=== PATIENT | female | born 1980 | race Caucasian/White ===

== ENCOUNTER 2017-12-04 14:26 | Emergency (ER) | payer OTHER ==
[2017-12-04] MEDS ORDERED: ONDANSETRON 4 MG/2 ML VIAL IVP STA (14:37)
[2017-12-04] MEDS ORDERED: MORPHINE SULFATE 4 MG/ML SYRINGE IV STA (14:37)
[2017-12-04] MEDS ORDERED: SODIUM CHLORIDE 0.9% 1,000 ML IV STA ×2 (14:37)
[2017-12-04] MEDS ORDERED: RX INFO: IV CONTRAST WAS GIVEN 1 EACH MISC MISCELLANE PRN (14:37)
--- NOTE | 2017-12-04 14:42 | ED ---
Abdominal Pain HPI - General Chief Complaint: Abdominal Pain Stated Complaint: lower right abdominal & back pain Time Seen by Provider: 12/04/17 14:32 Source: patient, family () Mode of arrival: ambulatory Limitations: no limitations - History of Present Illness Initial Comments: Patient presents with right lower quadrant abdominal pain that's been worsening over the past 3 days. Patient states she developed frequent diarrhea today. Denies any blood in her stools. Patient has a history of cholecystectomy, no other abdominal surgeries. Patient denies urinary symptoms, denies vaginal bleeding or discharge. Patient states pains in the right lower quadrant, now progressing to right flank. +nausea, no vomiting MD Complaint: abdominal pain Onset/Timin -: days(s) Location: RLQ Radiation: R flank Severity: moderate Consistency: constant - Related Data Home Medications Medication Instructions Recorded Confirmed Lisinopril [Zestril] 20 mg PO DAILY 12/04/17 12/04/17 Previous Rx's Medication Instructions Recorded Ibuprofen [Motrin] 600 mg PO Q6HR PRN #15 tab 12/04/17 Allergies Allergy/AdvReac Type Severity Reaction Status Date / Time No Known Allergies Allergy Verified 12/04/17 14:46 Review of Systems ROS Statement: Those systems with pertinent positive or pertinent negative responses have been documented in the HPI. ROS Other: All systems not noted in ROS Statement are negative. Constitutional: Denies: fever, chills, weakness Eyes: Denies: vision change ENT: Denies: ear pain, throat pain, congestion Respiratory: Denies: cough Cardiovascular: Denies: chest pain Endocrine: Denies: fatigue Gastrointestinal: Reports: abdominal pain, nausea, diarrhea. Denies: vomiting, constipation, hematemesis, melena, hematochezia Genitourinary: Denies: urgency, dysuria, frequency, hematuria, discharge, abnormal menses Musculoskeletal: Reports: back pain Skin: Denies: rash Neurological: Denies: headache, weakness Past Medical History Past Medical History: Hypertension History of Any Multi-Drug Resistant Organisms: None Reported Past Surgical History: Cholecystectomy Past Anesthesia/Blood Transfusion Reactions: Previous Problems w/ Anesthesia Additional Past Anesthesia/Blood Transfusion Reaction / Comment(s): Pt states difficulty waking up from general anesthesia Past Psychological History: No Psychological Hx Reported Smoking Status: Never smoker Past Alcohol Use History: Occasional Past Drug Use History: None Reported - Past Family History Mother History Unknown: Yes Family Medical History: Hypertension General Exam - General Exam Comments Initial Comments: Sitting up in bed legs crossed. Well appearing. Smiling, calm, pleasant. Not ill appearing. Does not appear in pain. Limitations: no limitations General appearance: alert, in no apparent distress Head exam: Present: atraumatic, normocephalic Eye exam: Present: normal appearance, PERRL, EOMI ENT exam: Present: mucous membranes moist Neck exam: Present: normal inspection Respiratory exam: Present: normal lung sounds bilaterally. Absent: respiratory distress, wheezes, rales Cardiovascular Exam: Present: regular rate, normal rhythm GI/Abdominal exam: Present: soft, other (No tenderness appreciated. No hernias appreciated.). Absent: distended, tenderness, guarding, rebound, rigid, hernia Neurological exam: Present: alert, oriented X3 Psychiatric exam: Present: normal affect, normal mood Skin exam: Present: warm, dry, intact, normal color. Absent: rash Course Vital Signs 12/04/17 14:28 Temperature 97.5 F L Pulse Rate 103 H Respiratory 20 Rate Blood Pressure 124/75 O2 Sat by Pulse 99 Oximetry Medical Decision Making - Medical Decision Making IV fluids, morphine, Zofran, computed tomography scan of abdomen to rule out appendicitis ordered. White blood cell count 10.7. Per radiology read CAT scan shows normal appendix, right ovarian cyst, possible mild ileus. test negative Patient has been updated without results. Patient pain control. Resting comfortably in bed. Abdomen remains nontender. Discuss liquid diet until symptoms resolve given possible ileus. 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 Return to ER for new or worsening symptoms including fevers, increased pain, blood in stools, not tolerating oral intake. All questions answered. Patient feels comfortable being discharged home at this time. Prescription of Motrin given. - Lab Data Result diagrams: 12/04/17 15:00 12/04/17 15:00 Lab Results 12/04/17 12/04/17 12/04/17 Range/Units 14:48 14:48 15:00 WBC 10.7 H (3.8-10.6) k/uL RBC 5.10 (3.80-5.40) m/uL Hgb 15.2 (11.4-16.0) gm/dL Hct 44.1 (34.0-46.0) % MCV 86.5 (80.0-100.0) fL MCH 29.8 (25.0-35.0) pg MCHC 34.4 (31.0-37.0) g/dL RDW 12.9 (11.5-15.5) % Plt Count 298 (150-450) k/uL Neutrophils % 81 % Lymphocytes % 13 % Monocytes % 4 % Eosinophils % 1 % Basophils % 0 % Neutrophils # 8.6 H (1.3-7.7) k/uL Lymphocytes # 1.4 (1.0-4.8) k/uL Monocytes # 0.4 (0-1.0) k/uL Eosinophils # 0.1 (0-0.7) k/uL Basophils # 0.0 (0-0.2) k/uL Sodium (137-145) mmol/L Potassium (3.5-5.1) mmol/L Chloride (98-107) mmol/L Carbon Dioxide (22-30) mmol/L Anion Gap mmol/L BUN (7-17) mg/dL Creatinine (0.52-1.04) mg/dL Est GFR (MDRD) Af Amer (>60 ml/min/1.73 sqM) Est GFR (MDRD) Non-Af (>60 ml/min/1.73 sqM) Glucose (74-99) mg/dL Calcium (8.4-10.2) mg/dL Total Bilirubin (0.2-1.3) mg/dL AST (14-36) U/L ALT (9-52) U/L Alkaline Phosphatase (38-126) U/L Total Protein (6.3-8.2) g/dL Albumin (3.5-5.0) g/dL Lipase (23-300) U/L Urine Color Yellow Urine Appearance Clear (Clear) Urine pH 5.5 (5.0-8.0) Ur Specific [place] 1.018 (1.001-1.035) Urine Protein Negative (Negative) Urine Glucose (UA) Negative (Negative) Urine Ketones Negative (Negative) Urine Blood Negative (Negative) Urine Nitrite Negative (Negative) Urine Bilirubin Negative (Negative) Urine Urobilinogen <2.0 (<2.0) mg/dL Ur Leukocyte Esterase Negative (Negative) Urine HCG, Qual Not Detected (Not Detectd) 12/04/17 Range/Units 15:00 WBC (3.8-10.6) k/uL RBC (3.80-5.40) m/uL Hgb (11.4-16.0) gm/dL Hct (34.0-46.0) % MCV (80.0-100.0) fL MCH (25.0-35.0) pg MCHC (31.0-37.0) g/dL RDW (11.5-15.5) % Plt Count (150-450) k/uL Neutrophils % % Lymphocytes % % Monocytes % % Eosinophils % % Basophils % % Neutrophils # (1.3-7.7) k/uL Lymphocytes # (1.0-4.8) k/uL Monocytes # (0-1.0) k/uL Eosinophils # (0-0.7) k/uL Basophils # (0-0.2) k/uL Sodium 140 (137-145) mmol/L Potassium 4.1 (3.5-5.1) mmol/L Chloride 106 (98-107) mmol/L Carbon Dioxide 22 (22-30) mmol/L Anion Gap 12 mmol/L BUN 11 (7-17) mg/dL Creatinine 0.68 (0.52-1.04) mg/dL Est GFR (MDRD) Af Amer >60 (>60 ml/min/1.73 sqM) Est GFR (MDRD) Non-Af >60 (>60 ml/min/1.73 sqM) Glucose 106 H (74-99) mg/dL Calcium 9.3 (8.4-10.2) mg/dL Total Bilirubin 1.6 H (0.2-1.3) mg/dL AST 22 (14-36) U/L ALT 24 (9-52) U/L Alkaline Phosphatase 88 (38-126) U/L Total Protein 7.3 (6.3-8.2) g/dL Albumin 4.2 (3.5-5.0) g/dL Lipase 44 (23-300) U/L Urine Color Urine Appearance (Clear) Urine pH (5.0-8.0) Ur Specific [place] (1.001-1.035) Urine Protein (Negative) Urine Glucose (UA) (Negative) Urine Ketones (Negative) Urine Blood (Negative) Urine Nitrite (Negative) Urine Bilirubin (Negative) Urine Urobilinogen (<2.0) mg/dL Ur Leukocyte Esterase (Negative) Urine HCG, Qual (Not Detectd) Disposition Clinical Impression: RLQ abdominal pain, Right ovarian cyst, Ileus Disposition: HOME SELF-CARE Condition: Good Instructions: Abdominal Pain (ED), Ileus (ED), Ovarian Cyst (ED) Additional Instructions: Follow up with her primary care physician in one to 2 days. Return to ER for new or worsening symptoms including fever, increased pain, blood stools. Prescriptions: Ibuprofen [Motrin] 600 mg PO Q6HR PRN #15 tab PRN Reason: Pain Referrals: Syed Cortes III, MD [Primary Care Provider] - 1-2 days
[2017-12-04 15:16] LABS: Basophils % (A) 0 %; Eosinophils # (A) 0.1 k/uL (0-0.7); Eosinophils % (A) 1 %; HCT 44.1 % (34.0-46.0); HGB 15.2 gm/dL (11.4-16.0); Lymphocytes # (A) 1.4 k/uL (1.0-4.8); Lymphocytes % (A) 13 %; MCH 29.8 pg (25.0-35.0); MCHC 34.4 g/dL (31.0-37.0); MCV 86.5 fL (80.0-100.0); Mean Platelet Volume 6.8; Monocytes # (A) 0.4 k/uL (0-1.0); Monocytes % (A) 4 %; Neutrophils # (A) 8.6 k/uL (1.3-7.7); Neutrophils % (A) 81 %; Platelet Count 298 k/uL (150-450); RDW 12.9 % (11.5-15.5); WBC 10.7 k/uL (3.8-10.6)
[2017-12-04 15:17] LABS: Appearance,Urine Clear (Clear); Bilirubin,Urine Negative (Negative); Blood,Urine Negative (Negative); Color,Urine Yellow; Glucose,Urine (UA) Negative (Negative); Ketones,Urine Negative (Negative); Leukocyte Esterase,Urine Negative (Negative); Nitrite,Urine Negative (Negative); PH, Urine 5.5 (5.0-8.0); Protein,Urine Negative (Negative); Specific Gravity,Urine 1.018 (1.001-1.035); Urobilinogen,Urine <2.0 mg/dL (<2.0)
[2017-12-04 15:28] LABS: ALT 24 U/L (9-52); AST 22 U/L (14-36); Albumin 4.2 g/dL (3.5-5.0); Alkaline Phosphatase 88 U/L (38-126); Anion Gap 12 mmol/L; Blood Urea Nitrogen 11 mg/dL (7-17); Calcium 9.3 mg/dL (8.4-10.2); Carbon Dioxide 22 mmol/L (22-30); Chloride 106 mmol/L (98-107); Glucose 106 mg/dL (74-99); Lipase 44 U/L (23-300); Potassium 4.1 mmol/L (3.5-5.1); Sodium 140 mmol/L (137-145); Total Bilirubin 1.6 mg/dL (0.2-1.3); Total Protein 7.3 g/dL (6.3-8.2)
--- NOTE | 2017-12-04 16:16 | CT ---
EXAMINATION TYPE: CT abdomen pelvis w con DATE OF EXAM: 12/04/2017 COMPARISON: The fourth 2014 INDICATION: Patient complains of RLQ pain. DLP: 823.9 mGycm, Automated exposure control for dose reduction was used. CONTRAST: 100 mL of Omnipaque 300. Study performed without Oral Contrast TECHNIQUE: Axial images were obtained from above the diaphragm to the pubic rami in the axial plane a t 5 mm thick sections. Reconstructed images are reviewed on the computer in the coronal plane. FINDINGS: Limited CT sections are obtained the lung bases. The lung bases are clear. CT ABDOMEN: Liver: Normal Spleen: Normal Pancreas: Normal Adrenal glands: The adrenal glands are normal. Gallbladder: Surgically absent. Kidneys: No masses are evident. No hydronephrosis is present. No cysts are present. Delayed images were obtained through the kidneys, which remain unremarkable. Aorta: Normal Inferior vena cava: Normal. CT PELVIS: There are fluid-filled small bowel loops. These are at the upper limits of normal for size. The colon appears unremarkable. Studies performed without oral contrast limiting the evaluation. Appendix: Normal as visualized. Urinary bladder: Decompressed with limited evaluation. Genitourinary structures: Uterus is unremarkable. Left adnexa is normal. The right adnexal region may contain a 1.8 cm cyst. No free fluid is within the pelvis. Osseous structures: No suspicious lytic or sclerotic lesions. IMPRESSIONS: 1. 1.8 cm right ovarian cyst. Follow-up ultrasound be performed following the next normal menstrual period. 2. Normal appendix. 3. There are fluid-filled small bowel loops. These are at the upper limits of normal for size. Correl ate for mild ileus.
[2017-12-04 17:20] VITALS: BP 107/57; PULSE 80; RESP 18; TEMP 98.2
== END 2017-12-04 17:16 | disposition home or self-care (01) ==
LOC: EC 14:26
DX: N83.201 Unspecified ovarian cyst, right side (principal); K56.7 Ileus, unspecified; D72.829 Elevated white blood cell count, unspecified; I10 Essential (primary) hypertension; Z79.899 Other long term (current) drug therapy; Z53.8 Procedure and treatment not carried out for other reasons; Z90.49 Acquired absence of other specified parts of digestive tract
CPT/HCPCS: 36415; 80053; 83690; 85025; 81003; 81025; 74177; 99284; 96374; 96375; 96361 ×2; J2270; J2405; Q9967

== ENCOUNTER 2017-12-16 06:46 | Day surgery (SDC) | payer OTHER ==
[2017-12-15 09:26] VITALS: BMI 31.3
[~2017-12-16 06:46] MED LIST: DEXAMETHASONE SOD PHOSPHATE 10 MG/ML 1 ML VIAL IV ONE; LACTATED RINGERS 1,000 ML IV SCH; MIDAZOLAM 2 MG/2 ML VIAL IV PRN; MORPHINE SULFATE 4 MG/ML SYRINGE IV PRN; ONDANSETRON 4 MG/2 ML VIAL IVP ONE; Pre Op ABX Message 1 EACH MISC MISCELLANE ONE; SCOPOLAMINE 1.5MG/72HR PATCH TRANSDERM ONE
[2017-12-16] MEDS ORDERED: LIDOCAINE 1% 20 ML VIAL (10MG/ML) FOR IV START INTRADERMA ONE (07:10)
[2017-12-16] MEDS ORDERED: BUPIVACAINE (PF) 0.25% 30 ML VIAL SQ ONE (07:46)
[2017-12-16] MEDS ORDERED: fentaNYL (PF) 50 MCG/ML 2 ML AMP ONE (07:54)
[2017-12-16] MEDS ORDERED: GLYCOPYRROLATE 0.2 MG/ML 2 ML VIAL ONE (07:54)
[2017-12-16] MEDS ORDERED: PROPOFOL 10 MG/ML 20 ML VIAL IV ONE (07:54)
[2017-12-16] MEDS ORDERED: LIDOCAINE 1% INJ 10MG/ML (20 ML MDV) ONE (07:54)
[2017-12-16] MEDS ORDERED: ROCURONIUM BROMIDE 10 MG/ML 10 ML VIAL IV ONE (07:54)
[2017-12-16] MEDS ORDERED: MIDAZOLAM 2 MG/2 ML VIAL ONE (07:54)
[2017-12-16] MEDS ORDERED: SUCCINYLCHOLINE CHLORIDE 100 MG/5 ML SYR IV ONE (07:54)
[2017-12-16] MEDS ORDERED: KETOROLAC 30 MG/ML 1 ML VIAL ONE (07:54)
[2017-12-16] MEDS ORDERED: NEOSTIGMINE 1 MG/ML 10 ML VIAL ONE (07:54)
--- NOTE | 2017-12-16 07:59 | P.HPOB ---
History of Present Illness H&P Date: 12/16/17 Chief Complaint: Family planning Allen is a 37-year-old female who is completed her family planning and desires permanent sterilization. She is taking lisinopril for hypertension therefore is not a good candidate for oral contraceptives. Alternative methods for control were discussed with the patient in detail but she is certain that permanent sterilization is what she would like. She is therefore scheduled for a laparoscopic tubal occlusion with Filshie clips. Risks/benefits/alternatives to this procedure again were discussed with the patient in detail and all questions were answered for her prior to proceeding to the operative room. She is also noted to have had some pain in her ovaries and would like this evaluated the same time. On physical exam vital signs are stable and afebrile. Heart regular, lungs clear, extremities are without pain. Osteopathic exam is unremarkable. Abdomen soft nontender positive bowel sounds are noted. Pelvic exam is generally unremarkable. Assessment family planning. Plan laps up tubal occlusion with Filshie clips Past Medical History Past Medical History: Hypertension History of Any Multi-Drug Resistant Organisms: None Reported Past Surgical History: Cholecystectomy Past Anesthesia/Blood Transfusion Reactions: Previous Problems w/ Anesthesia Additional Past Anesthesia/Blood Transfusion Reaction / Comment(s): Pt states difficulty waking up from general anesthesia Smoking Status: Never smoker - Past Family History Mother History Unknown: Yes Family Medical History: Hypertension Medications and Allergies Home Medications Medication Instructions Recorded Confirmed Type Ibuprofen [Motrin] 600 mg PO Q6HR PRN #15 tab 12/04/17 12/15/17 Rx Lisinopril [Zestril] 20 mg PO DAILY 12/04/17 12/16/17 History Allergies Allergy/AdvReac Type Severity Reaction Status Date / Time No Known Allergies Allergy Verified 12/15/17 09:23 Exam Osteopathic Statement: *. No significant issues noted on an osteopathic structural exam other than those noted in the History and Physical/Consult. - Vital Signs Vital signs: Vital Signs Temp Pulse Pulse Ox 12/16/17 07:09 97.1 F L 70 99 Intake and Output 12/15/17 12/16/17 12/16/17 22:59 06:59 14:59 Intake Total 200 Balance 200 Intake: IV 200
--- NOTE | 2017-12-16 08:26 | P.OP ---
Date of Procedure: 12/16/17 Preoperative Diagnosis: Family planning Postoperative Diagnosis: Same Procedure(s) Performed: Laparoscopic tubal occlusion with Filshie clips Anesthesia: DMITRY Surgeon: Jorge L Herrmann Estimated Blood Loss (ml): 2 Urine output (ml): 30 Pathology: none sent Condition: stable Disposition: same day Operative Findings: Normal uterus tubes and ovaries no large cysts are noted Description of Procedure: Patient was taken to the operating suite where a general anesthetic was found be adequate. She was prepped and draped in the normal sterile fashion and placed in dorsal lithotomy position. Initially a weighted speculum was inserted into the vagina and the anterior lip was of the cervix was grasped with an Allis clamp. Cervix was then dilated and a uterine manipulator was inserted without difficulty. Red rubber catheter was then used to drain the bladder of urine and other instruments were removed from from the vagina. Gloves were changed and attention was turned to abdominal portion procedure where 3 mL of quarter percent Marcaine was injected periumbilically. Through this injected anesthetic a 5 mm skin incision was made and through this incision under direct visualization with an optical trocar and sleeve the camera was inserted. Once peritoneal placement was assured gas was left fully insufflate the abdomen and patient's placement steep Trendelenburg position. A second 8 mm skin incision was then made 3 cm above the pubic symphysis in the midline. Second port and sleeve were inserted to this incision under direct visualization. Observations pelvis were noted. Some scarring is noted in the posterior cul-de-sac but no evidence of endometriosis. 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 He functional cyst on the right ovary only. Once this was accomplished Filshie clips were placed 2-3 cm from uterine cornu on both the right and left tubes area no bleeding is noted through the mesosalpinx. Therefore, instruments are removed and gas was allowed to expel from the abdomen. 5 deep breaths were provided during this process. Once this was accomplished and ports were removed 4-0 Vicryl was used to close incision subcuticularly and the remaining 7 mL of quarter percent Marcaine was injected around the incisions. Incidents were then removed from the vagina sponge, lap, needle counts were all correct 2. Patient was then taken to the recovery room in stable and satisfactory condition. Plan - Discharge Summary New Discharge Prescriptions: New Acetaminophen-Codeine 300-30mg [Tylenol #3] 1 tab PO Q4H PRN #30 tablet PRN Reason: Pain Ibuprofen [Motrin] 600 mg PO Q6HR PRN #30 tab PRN Reason: Pain No Action Lisinopril [Zestril] 20 mg PO DAILY Ibuprofen [Motrin] 600 mg PO Q6HR PRN #15 tab PRN Reason: Pain Discharge Medication List Ibuprofen [Motrin] 600 mg PO Q6HR PRN #15 tab 12/04/17 [Rx] Lisinopril [Zestril] 20 mg PO DAILY 12/04/17 [History] Acetaminophen-Codeine 300-30mg [Tylenol #3] 1 tab PO Q4H PRN #30 tablet [Rx] Ibuprofen [Motrin] 600 mg PO Q6HR PRN #30 tab 12/16/17 [Rx] Follow up Appointment(s)/Referral(s): Jorge L Herrmann DO [Doctor of Osteopathic Medicine] - 2 Weeks Activity/Diet/Wound Care/Special Instructions: No heavy lifting, limit stairs and driving, and pelvic rest. If any high temperatures, heavy bleeding, or severe pain call my office Discharge Disposition: HOME SELF-CARE
[2017-12-16 08:38] VITALS: RESP 16; TEMP 97
[2017-12-16] MEDS ORDERED: HYDROmorphone 0.5 MG/0.5 ML SYRINGE IVP ONE ×4 (08:58→09:52)
[2017-12-16] MEDS ORDERED: LACTATED RINGERS 1,000 ML IV ONE ×2 (09:05→11:58)
[2017-12-16 11:58] VITALS: BP 126/61; PULSE 61
== END 2017-12-16 12:46 | disposition home or self-care (01) ==
LOC: OR 06:46
PROVIDERS: ATTEND Obstetrics & Gynecology
DX: Z30.2 Encounter for sterilization (principal); N94.89 Other specified conditions associated with female genital organs and menstrual cycle; N83.201 Unspecified ovarian cyst, right side; I10 Essential (primary) hypertension; Z79.899 Other long term (current) drug therapy
CPT/HCPCS: 58671; 81025; J2250; J1100; J2710; J2405; J2001; J3010; J1885; J0330; J2704; J1170

== ENCOUNTER → 2018-04-21 | Outpatient (CLI) | payer OTHER | END | disposition home or self-care (01) | LOC: LABWHC1 11:18 | PROVIDERS: ATTEND Obstetrics & Gynecology | DX: N93.8 Other specified abnormal uterine and vaginal bleeding (principal) | CPT/HCPCS: 36415; 83001; 83002; 84146; 84443 ==

== ENCOUNTER → 2019-05-07 | Outpatient (CLI) | payer OTHER ==
[2019-05-07 10:54] LABS: Basophils % (A) 0 %; Eosinophils # (A) 0.2 k/uL (0-0.7); Eosinophils % (A) 2 %; HCT 41.6 % (34.0-46.0); HGB 13.8 gm/dL (11.4-16.0); Lymphocytes # (A) 2.1 k/uL (1.0-4.8); Lymphocytes % (A) 32 %; MCH 29.1 pg (25.0-35.0); MCHC 33.1 g/dL (31.0-37.0); MCV 87.7 fL (80.0-100.0); Mean Platelet Volume 7.1; Monocytes # (A) 0.3 k/uL (0-1.0); Monocytes % (A) 5 %; Neutrophils # (A) 3.9 k/uL (1.3-7.7); Neutrophils % (A) 58 %; Platelet Count 269 k/uL (150-450); RBC 4.75 m/uL (3.80-5.40); RDW 15.1 % (11.5-15.5); WBC 6.6 k/uL (3.8-10.6)
== END | disposition home or self-care (01) ==
LOC: LABPAT 10:14
PROVIDERS: ATTEND Obstetrics & Gynecology
DX: Z01.812 Encounter for preprocedural laboratory examination (principal)
CPT/HCPCS: 36415; 85025

== ENCOUNTER 2019-05-17 08:06 | Day surgery (SDC) | payer OTHER ==
[2019-05-15 12:16] VITALS: BMI 30.8
--- NOTE | 2019-05-16 16:42 | P.HPOB ---
History of Present Illness H&P Date: 05/16/19 Chief Complaint: Pelvic pain fluid in the endometrium Patient is a 38-year-old female with a history of pelvic pain. She is noted to have fluid on her ultrasound within the endometrium and as such we are planning to do a D&C with hysteroscopy to rule out pathology. Risks/b enefits/alternatives to this procedure were discussed with the patient in detail and all questions were answered for her prior to proceeding to the operative room. We did discuss potentially doing a NovaSure procedure, but due to the increased risk of the causing her pain we'll defer until were certain of pathology. On physical exam vital signs are stable and afebrile. Heart regular, lungs clear, extremities without pain. Abdomen soft nontender with positive bowel sounds. Pelvic exam is unremarkable. Assessment pelvic pain with fluid in the endometrium. Plan D&C with hysteroscopy. Past Medical History Past Medical History: Hypertension, Musculoskeletal Disorder Additional Past Medical History / Comment(s): Scoliosis. History of Any Multi-Drug Resistant Organisms: None Reported Past Surgical History: Cholecystectomy, Tubal Ligation Past Anesthesia/Blood Transfusion Reactions: Previous Problems w/ Anesthesia Additional Past Anesthesia/Blood Transfusion Reaction / Comment(s): Pt states difficulty waking up from general anesthesia. Past Psychological History: Anxiety, Depression Smoking Status: Never smoker Past Alcohol Use History: Occasional Past Drug Use History: None Reported - Past Family History Mother History Unknown: Yes Family Medical History: Hypertension Medications and Allergies Home Medications Medication Instructions Recorded Confirmed Type FLUoxetine HCL 10 mg PO QAM 05/15/19 05/15/19 History Hydrochlorothiazide 25 mg PO QAM 05/15/19 05/15/19 History Allergies Allergy/AdvReac Type Severity Reaction Status Date / Time No Known Allergies Allergy Verified 05/15/19 12:39 Exam Osteopathic Statement: *. No significant issues noted on an osteopathic structural exam other than those noted in the History and Physical/Consult.
[~2019-05-17 08:06] MED LIST changes: +HYDROmorphone 0.5 MG/0.5 ML SYRINGE IVP PRN; -MIDAZOLAM 2 MG/2 ML VIAL IV PRN; -MORPHINE SULFATE 4 MG/ML SYRINGE IV PRN; -SCOPOLAMINE 1.5MG/72HR PATCH TRANSDERM ONE
[2019-05-17] MEDS ORDERED: LIDOCAINE 1% 20 ML VIAL (10MG/ML) FOR IV START INTRADERMA ONE (08:34)
[2019-05-17] MEDS ORDERED: MIDAZOLAM 2 MG/2 ML VIAL ONE (09:27)
[2019-05-17] MEDS ORDERED: LIDOCAINE 1% INJ 10MG/ML (20 ML MDV) ONE (09:27)
[2019-05-17] MEDS ORDERED: fentaNYL (PF) 50 MCG/ML 2 ML AMP ONE (09:27)
[2019-05-17] MEDS ORDERED: PROPAFENONE 150 MG TAB ONE (09:27)
[2019-05-17] MEDS ORDERED: PROPOFOL 10 MG/ML 20 ML VIAL IV ONE (09:27)
[2019-05-17 10:07] VITALS: TEMP 96.1
--- NOTE | 2019-05-17 10:08 | P.OP ---
Date of Procedure: 05/17/19 Preoperative Diagnosis: Dysfunctional uterine bleeding Postoperative Diagnosis: Same Procedure(s) Performed: D&C with hysteroscopy Anesthesia: DMITRY Surgeon: Jorge L Herrmann Estimated Blood Loss (ml): 3 Pathology: other (Uterine curettings) Condition: stable Disposition: same day Operative Findings: Likely polyp Description of Procedure: Patient was taken to the operating suite where a general anesthetic was found be adequate. She was prepped and draped in normal sterile fashion and placed in dorsal lithotomy fashion. Initially weighted speculum was inserted into the vagina and the anterior lip of the cervix was identified and grasped with an Allis clamp. Cervix was then dilated camera was inserted. Grossly it appeared that there was a large polyp in the uterine cavity no other gross findings were noted therefore camera was removed and sharp curettings of endometrium were obtained. All tissues collected placed on Telfa and sent to pathology for evaluation. Once this was completed camera was reinserted and polyp appears to be gone now. All incidents were then removed. Sponge, lap, needle counts were all correct 2. Patient was then taken to the recovery room in stable and satisfactory condition. Plan - Discharge Summary Discharge Rx Participant: No New Discharge Prescriptions: New Ibuprofen [Motrin] 600 mg PO Q6HR PRN #30 tab PRN Reason: Pain No Action Hydrochlorothiazide 25 mg PO QAM FLUoxetine HCL 10 mg PO QAM Discharge Medication List FLUoxetine HCL 10 mg PO QAM 05/15/19 [History] Hydrochlorothiazide 25 mg PO QAM 05/15/19 [History] Ibuprofen [Motrin] 600 mg PO Q6HR PRN #30 tab 05/17/19 [Rx] Follow up Appointment(s)/Referral(s): Jorge L Herrmann DO [Doctor of Osteopathic Medicine] - 1 Week Activity/Diet/Wound Care/Special Instructions: No heavy lifting, and surgeon driving, and pelvic rest today. If any high temperatures, heavy bleeding, or severe pain call my office Discharge Disposition: HOME SELF-CARE
[2019-05-17 10:18] VITALS: RESP 18
[2019-05-17 11:01] VITALS: PULSE 79
[2019-05-17 11:30] VITALS: BP 126/79
== END 2019-05-17 11:56 | disposition home or self-care (01) ==
LOC: OR 08:06
PROVIDERS: ATTEND Obstetrics & Gynecology
DX: N93.8 Other specified abnormal uterine and vaginal bleeding (principal); N84.0 Polyp of corpus uteri; I10 Essential (primary) hypertension; M41.9 Scoliosis, unspecified; F41.9 Anxiety disorder, unspecified; F32.9 Major depressive disorder, single episode, unspecified; Z79.899 Other long term (current) drug therapy; Z90.49 Acquired absence of other specified parts of digestive tract; Z98.51 Tubal ligation status; Z82.49 Family history of ischemic heart disease and other diseases of the circulatory system
CPT/HCPCS: 58558; 81025; 88305; J2250; J1100; J2405; J2001; J3010; J2704

== ENCOUNTER 2019-06-20 18:52 | Emergency (ER) | payer OTHER ==
[2019-06-20] MEDS ORDERED: KETOROLAC 30 MG/ML 1 ML VIAL IVP STA (19:14)
[2019-06-20] MEDS ORDERED: HYDROmorphone 0.5 MG/0.5 ML SYRINGE IVP STA (19:14)
[2019-06-20] MEDS ORDERED: DIPH,PERTUS(ACELL)TETVAC-LF 0.5 ML VIAL IM ONE (19:23)
--- NOTE | 2019-06-20 19:25 | ED ---
Upper Extremity HPI - General Chief Complaint: Extremity Injury, Upper Stated Complaint: Nail in Hand Time Seen by Provider: 06/20/19 18:55 Source: patient, EMS Mode of arrival: EMS Limitations: no limitations - History of Present Illness Initial Comments: 38-year-old female patient presents to the emergency department today for evaluation after accidentally shooting herself with a nail gun. Patient states she was doing some work at her home when she missed fired and shot her wrist with the nail gun. Patient is reporting significant pain. Denies any numbness or tingling to the fingers. The nail is completely embedded and she was unable to remove it. She is unsure when her last tetanus vaccine was given. She was given 50mcg of Fentanyl in EMS prior to arrival. She denies any other symptoms. Patient denies any headache, neck pain, back pain, chest pain, shortness of breath, dizziness, weakness, abdominal pain, nausea, vomiting, or difficulties with bowel movements or urination. - Related Data Home Medications Medication Instructions Recorded Confirmed FLUoxetine HCL 10 mg PO QAM 05/15/19 05/17/19 Hydrochlorothiazide 25 mg PO QAM 05/15/19 05/17/19 Previous Rx's Medication Instructions Recorded Ibuprofen [Motrin] 600 mg PO Q6HR PRN #30 tab 05/17/19 Cephalexin [Keflex] 500 mg PO Q6HR #40 cap 06/20/19 Allergies Allergy/AdvReac Type Severity Reaction Status Date / Time No Known Allergies Allergy Verified 05/15/19 12:39 Review of Systems ROS Statement: Those systems with pertinent positive or pertinent negative responses have been documented in the HPI. ROS Other: All systems not noted in ROS Statement are negative. Past Medical History Past Medical History: Hypertension, Musculoskeletal Disorder Additional Past Medical History / Comment(s): Scoliosis. History of Any Multi-Drug Resistant Organisms: None Reported Past Surgical History: Cholecystectomy, Tubal Ligation Past Anesthesia/Blood Transfusion Reactions: Previous Problems w/ Anesthesia Additional Past Anesthesia/Blood Transfusion Reaction / Comment(s): Pt states difficulty waking up from general anesthesia. Past Psychological History: Anxiety, Depression Smoking Status: Never smoker Past Alcohol Use History: Occasional Past Drug Use History: None Reported - Past Family History Mother History Unknown: Yes Family Medical History: Hypertension General Exam Limitations: no limitations General appearance: alert, in no apparent distress, other (This is a well- developed, well-nourished adult female patient in mild distress related to pain. Vital signs upon presentation are temperature 98.1F, pulse 66, respirations 17, blood pressure 112/70, pulse ox 98% on room air.) Eye exam: Present: normal appearance, PERRL, EOMI. Absent: scleral icterus, conjunctival injection, periorbital swelling ENT exam: Present: normal exam, normal oropharynx, mucous membranes moist Respiratory exam: Present: normal lung sounds bilaterally. Absent: respiratory distress, wheezes, rales, rhonchi, stridor Cardiovascular Exam: Present: regular rate, normal rhythm, normal heart sounds. Absent: systolic murmur, diastolic murmur, rubs, gallop, clicks Extremities exam: Present: full ROM, normal capillary refill, other (There is puncture entrance wound noted to the palmar aspect of the left hand, puncture and skin tenting noted to the dorsal surface of the left wrist. No protruding foreign body noted. Skin to the arm is pink, warm, dry. Cap refills less than 3 seconds. Radial pulses 2+ and equal bilaterally.). Absent: normal inspection, tenderness, pedal edema, joint swelling, calf tenderness Neurological exam: Present: alert, oriented X3, CN II-XII intact Psychiatric exam: Present: normal affect, normal mood Skin exam: Present: warm, dry, intact, normal color. Absent: rash Course Vital Signs 06/20/19 06/20/19 19:05 22:03 Temperature 98.1 F 98 F Pulse Rate 66 70 Respiratory 17 18 Rate Blood Pressure 112/70 121/82 O2 Sat by Pulse 98 97 Oximetry Procedures - Orthopedic Splinting/Casting Injury #1 Side: left Upper Extremity Injury Location: wrist Upper Extremity Immobilizer: volar splint, Elijah wrap Additional Comments: Well padded with webroll. Neurovascular status intact after splint application. Given is pink, warm, dry. Cap refills less than 3 seconds. Radial pulses 2+ and equal bilaterally. Medical Decision Making - Medical Decision Making 38-year-old female patient percents into to the emergency department today for evaluation after accidentally shooting her wrist with a nail gun. Physical examination does reveal entrance puncture wound to the palm of the left hand with tenting of the skin and puncture and skin tenting to the dorsal wrist. There is no bleeding. X-ray did reveal nail foreign body possibly transversing the capitate. My attending Dr. Suazo was in to evaluate the patient. He spoke to orthopedic [employer] orthodontist Dr. Evans who advised splinting and follow up with the hand specialist in the office tomorrow morning. Patient was given 1g IV kefzol. She'll be discharged home with starter packs for pain management and antibiotics. Patient was placed in OCL splint. This was well padded with web roll. Neurovascular status intact after splint application. She is instructed to follow-up with orthopedics tomorrow. Return parameters were discussed in detail. She verbalizes understanding and agrees with this plan. - Radiology Data Radiology results: report reviewed, image reviewed Left wrist x-rays are obtained. Report was reviewed in its entirety. Impression by Dr. Avila shows a nail appears to transverse the capitellum. (My review of the xray shows possibly transversing the capitate). Disposition Clinical Impression: Foreign body of left hand Disposition: HOME SELF-CARE Condition: Stable Instructions (If sedation given, give patient instructions): Soft Tissue Foreign Body (ED), Wrist Fracture in Adults (ED), Splint Care (ED) Additional Instructions: Rest, ice, elevate the left wrist. Follow-up with the orthopedic hand specialist first thing in the morning. Call the office for an appointment. Take medications when she when he emergency department. Return immediately for any new, worsening, or concerning symptoms. Prescriptions: Cephalexin [Keflex] 500 mg PO Q6HR #40 cap Is patient prescribed a controlled substance at d/c from ED?: No Referrals: Cleveland Andino DO [Medical Doctor] - 1-2 days Time of Disposition: 21:48
[2019-06-20] MEDS ORDERED: HYDROmorphone 1 MG/ML 1 ML SYRINGE IVP STA (20:24)
--- NOTE | 2019-06-20 20:33 | XR ---
EXAMINATION TYPE: XR wrist complete LT DATE OF EXAM: 06/20/2019 COMPARISON: None HISTORY: Nail gun injury TECHNIQUE: Left wrist is examined in 4 projections. FINDINGS: There is a metallic foreign body transversing the capitellum. Soft tissue swelling is prese nt dorsally. IMPRESSION: 1. The nail appears to transverse the capitellum.
[2019-06-20] MEDS ORDERED: ACET/COD 300 MG/30 MG STARTER PACK 6 TAB BTL PO STA (21:48)
[2019-06-20] MEDS ORDERED: CEPHALEXIN 500MG STARTER PACK 4 CAP BTL PO STA (21:49)
[2019-06-20 22:04] VITALS: BP 121/82; PULSE 70; RESP 18; TEMP 98
== END 2019-06-20 22:11 | disposition home or self-care (01) ==
LOC: EC 18:52
DX: S61.442A Puncture wound with foreign body of left hand, initial encounter (principal); I10 Essential (primary) hypertension; F32.9 Major depressive disorder, single episode, unspecified; F41.9 Anxiety disorder, unspecified; Z79.899 Other long term (current) drug therapy; Z23 Encounter for immunization; W45.0XXA Nail entering through skin, initial encounter; Y93.89 Activity, other specified
CPT/HCPCS: 73110; 90715; 99284; 29125; 96365; 96375 ×2; 96376; 90471; J0690; J1885; J1170 ×2

== ENCOUNTER 2022-03-29 10:03 | Emergency (ER) | payer OTHER ==
[2022-03-29] MEDS ORDERED: MORPHINE SULFATE 2 MG/ML SYRINGE IVP STA (10:22)
--- NOTE | 2022-03-29 10:24 | ED ---
Abdominal Pain HPI - General Chief Complaint: Abdominal Pain Stated Complaint: abd pain Time Seen by Provider: 03/29/22 10:13 Source: patient, RN notes reviewed Mode of arrival: ambulatory Limitations: no limitations - History of Present Illness Initial Comments: Patient is a 41-year-old female presents to the emergency room with complaints of upper abdominal pain occasional nausea and diarrhea ongoing for the last 3 days. She reports that she has decreased her oral intake due to diarrhea with any intake. She denies any vomiting. She denies any blood or mucus in her stool. She denies any fevers, exposure to cold or influenza, intake of fo ods that may induce food poisoning. She has a previous cholecystectomy. She is past medical history significant for hypertension. She currently has a Nexplanon implanted and does report that she had an extra menstrual cycle last month and a history of ovarian cysts but denies any concerns for STDs or pregnancies. She is not currently on her menstrual cycle. She denies any other complaints or andrew rns this time. - Related Data Home Medications Medication Instructions Recorded Confirmed Loratadine [Alavert] 10 mg PO DAILY 03/29/22 03/29/22 Losartan [Cozaar] 50 mg PO DAILY 03/29/22 03/29/22 Allergies Allergy/AdvReac Type Severity Reaction Status Date / Time No Known Allergies Allergy Verified 03/29/22 11:34 Review of Systems ROS Statement: Those systems with pertinent positive or pertinent negative responses have been documented in the HPI. ROS Other: All systems not noted in ROS Statement are negative. Past Medical History Past Medical History: Hypertension, Musculoskeletal Disorder Additional Past Medical History / Comment(s): Scoliosis. History of Any Multi-Drug Resistant Organisms: None Reported Past Surgical History: Cholecystectomy, Tubal Ligation Past Anesthesia/Blood Transfusion Reactions: Previous Problems w/ Anesthesia Additional Past Anesthesia/Blood Transfusion Reaction / Comment(s): Pt states difficulty waking up from general anesthesia. Past Psychological History: Anxiety, Depression Smoking Status: Never smoker Past Alcohol Use History: Occasional Past Drug Use History: None Reported - Past Family History Mother History Unknown: Yes Family Medical History: Hypertension General Exam Limitations: no limitations General appearance: alert, in no apparent distress Head exam: Present: atraumatic, normocephalic, normal inspection Eye exam: Present: normal appearance, PERRL, EOMI. Absent: scleral icterus, conjunctival injection, periorbital swelling ENT exam: Present: normal exam, mucous membranes moist Respiratory exam: Present: normal lung sounds bilaterally. Absent: respiratory distress, wheezes, rales, rhonchi, stridor Cardiovascular Exam: Present: regular rate, normal rhythm, normal heart sounds. Absent: systolic murmur, diastolic murmur, rubs, gallop, clicks GI/Abdominal exam: Present: tenderness (Bilateral upper quadrants ), normal bowel sounds. Absent: distended, rebound, rigid, organomegaly, mass Rectal exam: Present: deferred Extremities exam: Present: normal inspection, normal capillary refill. Absent: tenderness, pedal edema, joint swelling, calf tenderness Back exam: Absent: CVA tenderness (R), CVA tenderness (L) Neurological exam: Present: alert, oriented X3, CN II-XII intact Psychiatric exam: Present: normal affect, normal mood Skin exam: Present: warm, dry, intact, normal color. Absent: rash Course Vital Signs 03/29/22 03/29/22 10:04 11:57 Pulse Rate 90 67 Respiratory 22 16 Rate Blood Pressure 144/97 119/77 O2 Sat by Pulse 100 98 Oximetry Medical Decision Making - Medical Decision Making Pain improved with one-time dose of morphine. Computed tomography scan showed predominant fluid-filled small bowel loops throughout consistent with enteritis. Scattered nonenlarged and borderline mildly enlarged mesenteric lymph nodes measuring up to 1.0 cm which are stable to decreased compared to previous imaging. Computed tomography scan also shows some some asymmetrical fullness of right renal collecting system which is likely transient possibility of recently passed stone which is consistent with most recent urine analysis which showed hematuria and proteinuria mucus and casts without bacteria leukocyte esterase or nitrates.. Pain stable without any nausea vomiting or diarrhea during ER visit. - Lab Data Result diagrams: 03/29/22 10:24 03/29/22 10:24 Lab Results 03/29/22 03/29/22 03/29/22 Range/Units 10: 10: 10:24 WBC 11.5 H (3.8-10.6) k/uL RBC 4.59 (3.80-5.40) m/uL Hgb 14.0 (11.4-16.0) gm/dL Hct 41.9 (34.0-46.0) % MCV 91.1 (80.0-100.0) fL MCH 30.4 (25.0-35.0) pg MCHC 33.3 (31.0-37.0) g/dL RDW 13.0 (11.5-15.5) % Plt Count 279 (150-450) k/uL MPV 6.9 Neutrophils % 78 % Lymphocytes % 14 % Monocytes % 5 % Eosinophils % 1 % Basophils % 0 % Neutrophils # 9.0 H (1.3-7.7) k/uL Lymphocytes # 1.6 (1.0-4.8) k/uL Monocytes # 0.5 (0-1.0) k/uL Eosinophils # 0.1 (0-0.7) k/uL Basophils # 0.1 (0-0.2) k/uL Sodium (137-145) mmol/L Potassium (3.5-5.1) mmol/L Chloride (98-107) mmol/L Carbon Dioxide (22-30) mmol/L Anion Gap mmol/L BUN (7-17) mg/dL Creatinine (0.52-1.04) mg/dL Est GFR (CKD-EPI)AfAm (>60 ml/min/1.73 sqM) Est GFR (CKD-EPI)NonAf (>60 ml/min/1.73 sqM) Glucose (74-99) mg/dL Calcium (8.4-10.2) mg/dL Total Bilirubin (0.2-1.3) mg/dL AST (14-36) U/L ALT (4-34) U/L Alkaline Phosphatase (38-126) U/L Total Protein (6.3-8.2) g/dL Albumin (3.5-5.0) g/dL Amylase (30-110) U/L Lipase (23-300) U/L Urine Color Yellow Urine Appearance Clear (Clear) Urine pH 5.5 (5.0-8.0) Ur Specific [place] 1.023 (1.001-1.035) Urine Protein Trace H (Negative) Urine Glucose (UA) Negative (Negative) Urine Ketones Negative (Negative) Urine Blood Large H (Negative) Urine Nitrite Negative (Negative) Urine Bilirubin Negative (Negative) Urine Urobilinogen <2.0 (<2.0) mg/dL Ur Leukocyte Esterase Negative (Negative) Urine RBC 21 H (0-5) /hpf Urine WBC 1 (0-5) /hpf Hyaline Casts 1 (0-2) /lpf Urine Mucus Occasional H (None) /hpf Urine HCG, Qual Not Detected (Not Detectd) 03/29/22 Range/Units 10:24 WBC (3.8-10.6) k/uL RBC (3.80-5.40) m/uL Hgb (11.4-16.0) gm/dL Hct (34.0-46.0) % MCV (80.0-100.0) fL MCH (25.0-35.0) pg MCHC (31.0-37.0) g/dL RDW (11.5-15.5) % Plt Count (150-450) k/uL MPV Neutrophils % % Lymphocytes % % Monocytes % % Eosinophils % % Basophils % % Neutrophils # (1.3-7.7) k/uL Lymphocytes # (1.0-4.8) k/uL Monocytes # (0-1.0) k/uL Eosinophils # (0-0.7) k/uL Basophils # (0-0.2) k/uL Sodium 139 (137-145) mmol/L Potassium 4.2 (3.5-5.1) mmol/L Chloride 104 (98-107) mmol/L Carbon Dioxide 25 (22-30) mmol/L Anion Gap 10 mmol/L BUN 9 (7-17) mg/dL Creatinine 0.59 (0.52-1.04) mg/dL Est GFR (CKD-EPI)AfAm >90 (>60 ml/min/1.73 sqM) Est GFR (CKD-EPI)NonAf >90 (>60 ml/min/1.73 sqM) Glucose 89 (74-99) mg/dL Calcium 9.0 (8.4-10.2) mg/dL Total Bilirubin 0.6 (0.2-1.3) mg/dL AST 29 (14-36) U/L ALT 25 (4-34) U/L Alkaline Phosphatase 77 (38-126) U/L Total Protein 7.1 (6.3-8.2) g/dL Albumin 4.2 (3.5-5.0) g/dL Amylase 47 (30-110) U/L Lipase 64 (23-300) U/L Urine Color Urine Appearance (Clear) Urine pH (5.0-8.0) Ur Specific [place] (1.001-1.035) Urine Protein (Negative) Urine Glucose (UA) (Negative) Urine Ketones (Negative) Urine Blood (Negative) Urine Nitrite (Negative) Urine Bilirubin (Negative) Urine Urobilinogen (<2.0) mg/dL Ur Leukocyte Esterase (Negative) Urine RBC (0-5) /hpf Urine WBC (0-5) /hpf Hyaline Casts (0-2) /lpf Urine Mucus (None) /hpf Urine HCG, Qual (Not Detectd) - Radiology Data Radiology results: report reviewed, image reviewed Disposition Clinical Impression: Gastroenteritis, Hematuria Disposition: HOME SELF-CARE Condition: Fair Instructions (If sedation given, give patient instructions): Kidney Stones (ED), Gastroenteritis (ED), Abdominal Pain (ED) Additional Instructions: Please return to the Emergency Department if symptoms worsen or any other concer ns. Is patient prescribed a controlled substance at d/c from ED?: No Referrals: Tabitha Lopez MD [Primary Care Provider] - 1-2 days Time of Disposition: 12:49
[2022-03-29 10:49] LABS: Basophils # (A) 0.1 k/uL (0-0.2); Basophils % (A) 0 %; Eosinophils # (A) 0.1 k/uL (0-0.7); Eosinophils % (A) 1 %; HCT 41.9 % (34.0-46.0); Lymphocytes # (A) 1.6 k/uL (1.0-4.8); Lymphocytes % (A) 14 %; MCH 30.4 pg (25.0-35.0); MCHC 33.3 g/dL (31.0-37.0); MCV 91.1 fL (80.0-100.0); Mean Platelet Volume 6.9; Monocytes # (A) 0.5 k/uL (0-1.0); Monocytes % (A) 5 %; Neutrophils % (A) 78 %; Platelet Count 279 k/uL (150-450); RBC 4.59 m/uL (3.80-5.40); WBC 11.5 k/uL (3.8-10.6)
[2022-03-29 11:07] LABS: Appearance,Urine Clear (Clear); Bilirubin,Urine Negative (Negative); Blood,Urine Large (Negative); Color,Urine Yellow; Glucose,Urine (UA) Negative (Negative); Hyaline Casts,Urine 1 /lpf (0-2); Ketones,Urine Negative (Negative); Leukocyte Esterase,Urine Negative (Negative); Mucus,Urine Occasional /hpf; Nitrite,Urine Negative (Negative); PH, Urine 5.5 (5.0-8.0); Protein,Urine Trace (Negative); RBC,Urine 21 /hpf (0-5); Specific Gravity,Urine 1.023 (1.001-1.035); Urobilinogen,Urine <2.0 mg/dL (<2.0); WBC,Urine 1 /hpf (0-5)
[2022-03-29 11:20] LABS: ALT 25 U/L (4-34); AST 29 U/L (14-36); African American GFR (CKD) >90 (>60 ml/min/1.73 sqM); Albumin 4.2 g/dL (3.5-5.0); Alkaline Phosphatase 77 U/L (38-126); Amylase 47 U/L (30-110); Anion Gap 10 mmol/L; Blood Urea Nitrogen 9 mg/dL (7-17); Carbon Dioxide 25 mmol/L (22-30); Chloride 104 mmol/L (98-107); Glucose 89 mg/dL (74-99); Lipase 64 U/L (23-300); Non-African American GFR(CKD) >90 (>60 ml/min/1.73 sqM); Potassium 4.2 mmol/L (3.5-5.1); Sodium 139 mmol/L (137-145); Total Bilirubin 0.6 mg/dL (0.2-1.3); Total Protein 7.1 g/dL (6.3-8.2)
--- NOTE | 2022-03-29 11:42 | CT ---
EXAMINATION TYPE: CT abdomen pelvis wo con DATE OF EXAM: 03/29/2022 COMPARISON: 12/04/2017k HISTORY: 41-year-old female Right sided abdominal pain and diarrhea. CT DLP: 955.2 mGycm. Automated exposure control for dose reduction was used. TECHNIQUE: Contiguous axial scanning of the abdomen and pelvis without IV contrast. Coronal and sagit janee reconstructions performed. FINDINGS: Heart is normal size without pericardial effusion. Mild strandy dependent atelectasis lower lungs wit hout pleural effusion. Liver borderline in size at 17.1 cm. Otherwise, noncontrast appearance of the liver, adrenal glands, and the left kidney, and spleen show no gross abnormality. Suspect some discontinuous tissue at the tail of the pancreas, for example, axial image 51. This is o verall smaller than prior exam. Mild fullness of the right renal collecting system and proximal right ureter likely transient. Scattered fluid-filled small bowel loops are present throughout. Scattered [id number] stool. Scattered hyperdense debris present throughout the bowel. Scattered nonenlarged and borderline to mildly enlarged mesenteric lymph nodes measuring up to 1.0 cm . Some of these appear to have decreased in size compared to 12/04/2017. No free fluid or free air. Bladder urine distended. The common pretty is present. Uterus anteverted. Bilateral tubal ligation clip s. 3.3 cm hypodense lesion right ovary versus 2.2 cm, previously. Pelvic phleboliths. No abnormal fluid collection in the pelvis or pelvic lymphadenopathy. Bones: Osteitis pubis. No osseous destructive process. Mild facet arthropathy lower lumbar spine. IMPRESSION: 1. Prominent fluid filled small bowel loops throughout. Consider generalized ileus or enteritis. Pun ctate hyperdense debris throughout the bowel could reflect recently ingested medication such as Pepto -Bismol, antacid, multivitamin, iron supplements or could reflect heavy metal ingestion and should be correlated clinically. 2. Scattered nonenlarged and borderline to mildly enlarged mesenteric lymph nodes measuring up to 1. 0 cm, stable to decreased compared to 2018. Findings likely chronic reactive/post inflammatory. 3. Some asymmetric fullness right renal collecting system is likely transient. The possibility of a recently passed stone is in the differential. 4. A 3.3 cm cystic lesion of the right ovary versus 2.2 cm in 2018. Probable dominant follicle/funct ional cyst.
[2022-03-29 11:58] VITALS: BP 119/77; PULSE 67; RESP 16
== END 2022-03-29 13:15 | disposition home or self-care (01) ==
LOC: EC 10:03
DX: K52.9 Noninfective gastroenteritis and colitis, unspecified (principal); R31.9 Hematuria, unspecified; I10 Essential (primary) hypertension; F32.A Depression, unspecified; F41.9 Anxiety disorder, unspecified; Z79.899 Other long term (current) drug therapy
CPT/HCPCS: 36415; 80053; 82150; 83690; 85025; 81001; 81025; 74176; 99284; 96374; J2270

== ENCOUNTER 2022-07-02 16:09 | Emergency (ER) | payer OTHER ==
[2022-07-02] MEDS ORDERED: SODIUM CHLORIDE 0.9% 1,000 ML IV STA (16:15)
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
[2022-07-02 16:37] LABS: Basophils # (A) 0.1 k/uL (0-0.2); Basophils % (A) 1 %; Eosinophils # (A) 0.1 k/uL (0-0.7); Eosinophils % (A) 1 %; HCT 38.4 % (34.0-46.0); HGB 12.8 gm/dL (11.4-16.0); Lymphocytes # (A) 1.9 k/uL (1.0-4.8); Lymphocytes % (A) 18 %; MCH 30.7 pg (25.0-35.0); MCHC 33.4 g/dL (31.0-37.0); Mean Platelet Volume 7.3; Monocytes # (A) 0.4 k/uL (0-1.0); Monocytes % (A) 4 %; Neutrophils # (A) 8.3 k/uL (1.3-7.7); Neutrophils % (A) 76 %; Platelet Count 242 k/uL (150-450); RBC 4.17 m/uL (3.80-5.40); WBC 10.9 k/uL (3.8-10.6)
[2022-07-02 16:40] VITALS: RESP 18
[2022-07-02 16:49] LABS: ALT 22 U/L (4-34); AST 34 U/L (14-36); African American GFR (CKD) >90 (>60 ml/min/1.73 sqM); Albumin 4.3 g/dL (3.5-5.0); Alcohol <10 mg/dL; Alkaline Phosphatase 84 U/L (38-126); Anion Gap 12 mmol/L; Blood Urea Nitrogen 12 mg/dL (7-17); Carbon Dioxide 21 mmol/L (22-30); Chloride 102 mmol/L (98-107); Glucose 111 mg/dL (74-99); Non-African American GFR(CKD) >90 (>60 ml/min/1.73 sqM); Potassium 3.8 mmol/L (3.5-5.1); Sodium 135 mmol/L (137-145); Total Bilirubin 0.9 mg/dL (0.2-1.3); Total Protein 6.7 g/dL (6.3-8.2)
[2022-07-02 17:04] LABS: INR 0.9 (<1.2); Prothrombin Time 9.9 sec (9.0-12.0)
[2022-07-02] MEDS ORDERED: KETOROLAC 15 MG/ML 1 ML VIAL IVP STA (17:21)
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
[2022-07-02 19:47] LABS: Amphetamine Screen,Urine Not Detected (NotDetected); Barbiturate Screen,Urine Not Detected (NotDetected); Benzodiazepines Screen,Urine Not Detected (NotDetected); Cocaine Screen,Urine Not Detected (NotDetected); Methadone Screen, Urine Not Detected (NotDetected); Opiate Screen,Urine Not Detected (NotDetected); Oxycodone Screen, Urine Not Detected (NotDetected); Phencyclidine Screen,Urine Not Detected (NotDetected); Tricyclic Antidepressant,Urine Not Detected (NotDetected); Urn Cannabinoid Scrn Not Detected (NotDetected)
[2022-07-02 20:45] VITALS: BP 142/80; PULSE 68; TEMP 98.3
== END 2022-07-02 20:06 | disposition home or self-care (01) ==
LOC: EC 16:09
DX: M79.644 Pain in right finger(s) (principal); I10 Essential (primary) hypertension; V89.2XXA Person injured in unspecified motor-vehicle accident, traffic, initial encounter
CPT/HCPCS: 36415; 93005; 86900; 86901; 80053; 84484; 85025; 85610; 85730; 86850; 80306; 80320; 73590; 72170; 73130; 71045; 72125; 70450; 71260; 74177; 99284; 96374; 96361; J1885; Q9967

== ENCOUNTER 2022-07-16 15:12 | Emergency (ER) | payer OTHER ==
[2022-07-16 16:21] VITALS: BP 135/86; PULSE 64; RESP 20; TEMP 97.8
--- NOTE | 2022-07-16 16:54 | US ---
EXAMINATION TYPE: US venous doppler duplex LE RT DATE OF EXAM: 07/16/2022 4:43 PM COMPARISON: NONE CLINICAL HISTORY: pain, edema. Right leg swelling SIDE PERFORMED: Right TECHNIQUE: The lower extremity deep venous system is examined utilizing real time linear array sonog anatoliy with graded compression, doppler sonography and color-flow sonography. VESSELS IMAGED: Common Femoral Vein Deep Femoral Vein Greater Saphenous Vein * Femoral Vein Popliteal Vein Small Saphenous Vein * Proximal Calf Veins (* superficial vessels) Right Leg: Appears negative for DVT IMPRESSION: No evidence of DVT at this time
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
== END 2022-07-16 18:01 | disposition home or self-care (01) ==
LOC: EC 15:12
DX: R22.41 Localized swelling, mass and lump, right lower limb (principal); I10 Essential (primary) hypertension; F41.9 Anxiety disorder, unspecified; F32.A Depression, unspecified; Z79.899 Other long term (current) drug therapy
CPT/HCPCS: 99283

== ENCOUNTER 2022-07-25 09:14 | Emergency (ER) | payer OTHER ==
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
[2022-07-25 10:25] VITALS: RESP 18
[2022-07-25] MEDS ORDERED: KETOROLAC 15 MG/ML 1 ML VIAL IM STA (10:32)
[2022-07-25 11:04] VITALS: BP 122/74; PULSE 71; TEMP 97.6
== END 2022-07-25 11:04 | disposition home or self-care (01) ==
LOC: EC 09:14
DX: S22.32XA Fracture of one rib, left side, initial encounter for closed fracture (principal); I10 Essential (primary) hypertension; Z79.899 Other long term (current) drug therapy; V89.2XXA Person injured in unspecified motor-vehicle accident, traffic, initial encounter
CPT/HCPCS: 71250; 99283; 96372; J1885

== ENCOUNTER → 2022-10-01 | Outpatient (CLI) | payer OTHER ==
[2022-10-01 14:26] LABS: Basophils # (A) 0.04 X 10*3/uL (0.00-0.10); Basophils % (A) 0.6 %; Eosinophils # (A) 0.08 X 10*3/uL (0.04-0.35); Eosinophils % (A) 1.2 %; HCT 40.6 % (37.2-46.3); HGB 13.3 g/dL (12.0-15.0); Immature Grans, Automated 0.4 %; Lymphocytes # (A) 1.97 X 10*3/uL (0.90-5.00); Lymphocytes % (A) 28.7 %; MCH 30.2 pg (27.0-32.0); MCHC 32.8 g/dL (32.0-37.0); MCV 92.1 fL (80.0-97.0); Mean Platelet Volume 9.9 fL (9.5-12.2); Monocytes # (A) 0.52 X 10*3/uL (0.20-1.00); Monocytes % (A) 7.6 %; NRBC Per 100 WBC 0 /100 WBCS (0.0-0.0); Neutrophils # (A) 4.23 X 10*3/uL (1.80-7.70); Neutrophils % (A) 61.5 %; Platelet Count 263 X 10*3/uL (140-440); RBC 4.41 X 10*6/uL (4.10-5.20); RDW 13.4 % (11.5-14.5); WBC 6.87 X 10*3/uL (4.50-10.00)
[2022-10-01 14:29] LABS: Chol/HDL Ratio 2.88 Ratio; LDL Cholesterol,Calculated 98.8 mg/dL (0.0-131.0); VLDL Calculation 12.82 mg/dL (5.00-40.00)
[2022-10-01 14:30] LABS: ALT 23 U/L (8-44); AST 26 U/L (13-35); African American GFR (CKD) 119.6 (60.0-200.0); Albumin 4.4 g/dL (3.8-4.9); Albumin/Globulin Ratio 1.58 (1.60-3.17); Alkaline Phosphatase 84 U/L (41-126); BUN/Creat Ratio 15.17 Ratio (12.00-20.00); Carbon Dioxide 24.9 mmol/L (20.0-27.5); Chloride 104 mmol/L (96-109); Globulin 2.8 g/dL (1.6-3.3); Glucose 73 mg/dL (70-110); Non-African American GFR(CKD) 103.2 (60.0-200.0); Potassium 4.2 mmol/L (3.5-5.5); Sodium 139 mmol/L (135-145); Total Protein 7.2 g/dL (6.2-8.2)
== END | disposition home or self-care (01) ==
LOC: LABWHC1 08:45
PROVIDERS: ATTEND Family Medicine
DX: Z00.00 Encounter for general adult medical examination without abnormal findings (principal); Z13.220 Encounter for screening for lipoid disorders; Z13.29 Encounter for screening for other suspected endocrine disorder
CPT/HCPCS: 36415; 80053; 80061; 84443; 85025

== ENCOUNTER 2023-04-16 06:20 | Emergency (ER) | payer OTHER ==
[2023-04-16 06:27] VITALS: RESP 18; TEMP 97.7
[2023-04-16] MEDS ORDERED: SODIUM CHLORIDE 0.9% 500 ML 500 ML IV STA (06:35)
[2023-04-16] MEDS ORDERED: SODIUM CHLORIDE 0.9% 1,000 ML IV STA (06:35)
[2023-04-16] MEDS ORDERED: KETOROLAC 15 MG/ML 1 ML VIAL IVP STA (06:35)
[2023-04-16] MEDS ORDERED: ONDANSETRON 4 MG/2 ML VIAL IVP STA ×2 (06:35→08:02)
--- NOTE | 2023-04-16 06:41 | ED ---
Abdominal Pain HPI - General Chief Complaint: Abdominal Pain Stated Complaint: Abd Pain Time Seen by Provider: 04/16/23 06:25 Source: patient, RN notes reviewed Mode of arrival: ambulatory Limitations: no limitations - History of Present Illness Initial Comments: Patient is a 42 year old female presenting to the ER with a chief complaint of lower abdominal pain. Patient states this started a couple of days ago as lower back pain and has now wrapped around to include her lower abdomen. She rates the pain 10/10 and has taken a Tylenol with no relief. She endorses associated nausea but denies constipation/diarrhea or vomiting. Patient admits to having a tubal ligation, ablation and cholecystectomy. Denies fevers, chills, nightsweats, chest pain, or shortness of breath. Patient states she sees an [facility] an [facility] in November. - Related Data Home Medications Medication Instructions Recorded Confirmed Loratadine [Alavert] 10 mg PO DAILY 03/29/22 03/29/22 Losartan [Cozaar] 50 mg PO DAILY 03/29/22 03/29/22 Previous Rx's Medication Instructions Recorded HYDROcodone/APAP 5-325MG [[place] 1 tab PO Q6HR PRN 3 Days #12 tab 07/02/22 5-325] HYDROcodone/APAP 5-325MG [[place] 1 tab PO Q6HR PRN #12 tab 07/25/22 5-325] Ibuprofen [Motrin] 600 mg PO Q8HR PRN #24 tab 07/25/22 Allergies Allergy/AdvReac Type Severity Reaction Status Date / Time No Known Allergies Allergy Verified 04/16/23 06:26 Review of Systems ROS Statement: Those systems with pertinent positive or pertinent negative responses have been documented in the HPI. ROS Other: All systems not noted in ROS Statement are negative. Past Medical History Past Medical History: Hypertension, Musculoskeletal Disorder Additional Past Medical History / Comment(s): Scoliosis. History of Any Multi-Drug Resistant Organisms: None Reported Past Surgical History: Ablation, Cholecystectomy, Tubal Ligation Past Anesthesia/Blood Transfusion Reactions: Previous Problems w/ Anesthesia Additional Past Anesthesia/Blood Transfusion Reaction / Comment(s): Pt states difficulty waking up from general anesthesia. Past Psychological History: Anxiety, Depression Smoking Status: Never smoker Past Alcohol Use History: Occasional Past Drug Use History: None Reported - Past Family History Mother History Unknown: Yes Family Medical History: Hypertension General Exam Limitations: no limitations General appearance: alert, anxious Respiratory exam: Present: normal lung sounds bilaterally. Absent: respiratory distress, wheezes, rales, rhonchi, stridor Cardiovascular Exam: Present: regular rate, normal rhythm, normal heart sounds. Absent: systolic murmur, diastolic murmur, rubs, gallop, clicks GI/Abdominal exam: Present: soft, tenderness (lower quadrants to palpation ), normal bowel sounds. Absent: distended, guarding, rebound, rigid Neurological exam: Present: alert, oriented X3 Psychiatric exam: Present: normal affect Skin exam: Present: warm, dry, intact, normal color. Absent: rash Course Vital Signs 04/16/23 04/16/23 06:24 09:06 Temperature 97.7 F Pulse Rate 69 60 Respiratory 18 18 Rate Blood Pressure 138/86 119/80 O2 Sat by Pulse 97 97 Oximetry Medical Decision Making - Medical Decision Making Was pt. sent in by a medical professional or institution (, PA, TRAIN GATEMAN, urgent care, hospital, or correction...) When possible be specific @ -No Did you speak to anyone other than the patient for history (EMS, parent, family, police, friend...)? What history was obtained from this source @ -No Did you review nursing and triage notes (agree or disagree)? Why? @ -I reviewed and agree with nursing and triage notes Were old charts reviewed (outside hosp., previous admission, EMS record, old EKG, old radiological studies, urgent care reports/EKG's, correction records)? Report findings @ -No old charts were reviewed Differential Diagnosis (chest pain, altered mental status, abdominal pain women, abdominal pain men, vaginal bleeding, weakness, fever, dyspnea, syncope, headache, dizziness, GI bleed, back pain, seizure, CVA, palpatations, mental health, musculoskeletal)? @ -Differential Abdominal Pain Women: Appendicitis, Cholecystitis, diverticulosis, ischemic bowel, pancreatitis, hepatitis, UTI, gastroenteritis, AAA, incarcerated hernia, bowel obstruction, constipation, inflammatory bowel, hepatitis, peptic ulcer disease, splenic infarction, perforated viscus, vulvitis, ovarian torsion, PID, kidney stone, placenta abruption, this is not meant to be an all-inclusive list EKG interpreted by me (3pts min.). @ -As above X-rays interpreted by me (1pt min.). @ -None done CT interpreted by me (1pt min.). @ -[CT of abdomen and pelvis shows new septated cystic mass of the uterus which may be an endometrial measuring 4.6 x 2.6 U/S interpreted by me (1pt. min.). @ -None done What testing was considered but not performed or refused? (CT, X-rays, U/S, labs)? Why? @ -None What meds were considered but not given or refused? Why? @ -None Did you discuss the management of the patient with other professionals (professionals i.e. , PA, TRAIN GATEMAN, lab, RT, psych nurse, high school social science teacher, horse groomer, teacher, purchasing officer, correctional case manager)? Give summary @ -No Was smoking cessation discussed for >3mins.? @ -No Was critical care preformed (if so, how long)? @ -No Were there social determinants of health that impacted care today? How? (Homelessness, low income, unemployed, alcoholism, drug addiction, transportation, low edu. Level, literacy, decrease access to med. care, retirement, rehab)? @ -No Was there de-escalation of care discussed even if they declined (Discuss DNR or withdrawal of care, Hospice)? DNR status @ -No What co-morbidities impacted this encounter? (DM, HTN, Smoking, COPD, CAD, Cancer, CVA, ARF, Chemo, Hep., AIDS, mental health diagnosis, sleep apnea, morbid obesity)? @ -None Was patient admitted / discharged? Hospital course, mention meds given and route, prescriptions, significant lab abnormalities, going to OR and other pertinent info. @ -Discharge patient labs are unremarkable CT shows new evidence of endometrial mass. Patient will follow-up with her PET FOOD DEBONER who performed her ablation in November. Patient's pain is improved at this time patient understands importance of following up closely. Return parameters were discussed. Undiagnosed new problem with uncertain prognosis? @ -Yes Drug Therapy requiring intensive monitoring for toxicity (Heparin, Nitro, Insulin, Cardizem)? @ -No Were any procedures done? @ -No Diagnosis/symptom? @ -Uterine mass Acute, or Chronic, or Acute on Chronic? @ -Acute Uncomplicated (without systemic symptoms) or Complicated (systemic symptoms)? @ -Uncomplicated Side effects of treatment? @ -No Exacerbation, Progression, or Severe Exacerbation? @ -No Poses a threat to life or bodily function? How? (Chest pain, USA, MS, pneumonia, PE, COPD, DKA, ARF, appy, cholecystitis, CVA, Diverticulitis, Homicidal, Suicidal, threat to staff... and all critical care pts) @ -No - Lab Data Result diagrams: 04/16/23 06:55 04/16/23 06:55 Lab Results 04/16/23 04/16/23 04/16/23 Range/Units 06:55 06:55 06:55 WBC 9.3 (3.8-10.6) k/uL RBC 4.71 (3.80-5.40) m/uL Hgb 14.0 (11.4-16.0) gm/dL Hct 40.9 (34.0-46.0) % MCV 86.8 (80.0-100.0) fL MCH 29.6 (25.0-35.0) pg MCHC 34.1 (31.0-37.0) g/dL RDW 13.4 (11.5-15.5) % Plt Count 246 (150-450) k/uL MPV 7.3 Neutrophils % 75 % Lymphocytes % 18 % Monocytes % 5 % Eosinophils % 0 % Basophils % 0 % Neutrophils # 7.0 (1.3-7.7) k/uL Lymphocytes # 1.6 (1.0-4.8) k/uL Monocytes # 0.5 (0-1.0) k/uL Eosinophils # 0.0 (0-0.7) k/uL Basophils # 0.0 (0-0.2) k/uL Sodium 137 (137-145) mmol/L Potassium 4.3 (3.5-5.1) mmol/L Chloride 106 (98-107) mmol/L Carbon Dioxide 24 (22-30) mmol/L Anion Gap 7 mmol/L BUN 11 (7-17) mg/dL Creatinine 0.56 (0.52-1.04) mg/dL Est GFR (CKD-EPI)AfAm >90 (>60 ml/min/1.73 sqM) Est GFR (CKD-EPI)NonAf >90 (>60 ml/min/1.73 sqM) Glucose 102 H (74-99) mg/dL Plasma Lactic Acid [place] (0.7-2.0) mmol/L Calcium 8.7 (8.4-10.2) mg/dL Total Bilirubin 0.9 (0.2-1.3) mg/dL AST 30 (14-36) U/L ALT 35 H (4-34) U/L Alkaline Phosphatase 97 (38-126) U/L Total Protein 7.2 (6.3-8.2) g/dL Albumin 4.1 (3.5-5.0) g/dL Amylase 45 (30-110) U/L Lipase 52 (23-300) U/L Urine Color Urine Appearance (Clear) Urine pH (5.0-8.0) Ur Specific [place] (1.001-1.035) Urine Protein (Negative) Urine Glucose (UA) (Negative) Urine Ketones (Negative) Urine Blood (Negative) Urine Nitrite (Negative) Urine Bilirubin (Negative) Urine Urobilinogen (<2.0) mg/dL Ur Leukocyte Esterase (Negative) Urine HCG, Qual Not Detected (Not Detectd) 04/16/23 04/16/23 Range/Units 06:55 07:43 WBC (3.8-10.6) k/uL RBC (3.80-5.40) m/uL Hgb (11.4-16.0) gm/dL Hct (34.0-46.0) % MCV (80.0-100.0) fL MCH (25.0-35.0) pg MCHC (31.0-37.0) g/dL RDW (11.5-15.5) % Plt Count (150-450) k/uL MPV Neutrophils % % Lymphocytes % % Monocytes % % Eosinophils % % Basophils % % Neutrophils # (1.3-7.7) k/uL Lymphocytes # (1.0-4.8) k/uL Monocytes # (0-1.0) k/uL Eosinophils # (0-0.7) k/uL Basophils # (0-0.2) k/uL Sodium (137-145) mmol/L Potassium (3.5-5.1) mmol/L Chloride (98-107) mmol/L Carbon Dioxide (22-30) mmol/L Anion Gap mmol/L BUN (7-17) mg/dL Creatinine (0.52-1.04) mg/dL Est GFR (CKD-EPI)AfAm (>60 ml/min/1.73 sqM) Est GFR (CKD-EPI)NonAf (>60 ml/min/1.73 sqM) Glucose (74-99) mg/dL Plasma Lactic Acid [place] 0.9 (0.7-2.0) mmol/L Calcium (8.4-10.2) mg/dL Total Bilirubin (0.2-1.3) mg/dL AST (14-36) U/L ALT (4-34) U/L Alkaline Phosphatase (38-126) U/L Total Protein (6.3-8.2) g/dL Albumin (3.5-5.0) g/dL Amylase (30-110) U/L Lipase (23-300) U/L Urine Color Colorless Urine Appearance Clear (Clear) Urine pH 5.5 (5.0-8.0) Ur Specific [place] 1.005 (1.001-1.035) Urine Protein Negative (Negative) Urine Glucose (UA) Negative (Negative) Urine Ketones Negative (Negative) Urine Blood Negative (Negative) Urine Nitrite Negative (Negative) Urine Bilirubin Negative (Negative) Urine Urobilinogen <2.0 (<2.0) mg/dL Ur Leukocyte Esterase Negative (Negative) Urine HCG, Qual (Not Detectd) Disposition Clinical Impression: Uterine mass Disposition: HOME SELF-CARE Condition: Stable Additional Instructions: Please return to the Emergency Department if symptoms worsen or any other concerns. Is patient prescribed a controlled substance at d/c from ED?: No Referrals: Tabitha Lopez MD [Primary Care Provider] - 1-2 days Time of Disposition: 09:20
[2023-04-16 07:02] LABS: Basophils % (A) 0 %; Eosinophils % (A) 0 %; HCT 40.9 % (34.0-46.0); Lymphocytes # (A) 1.6 k/uL (1.0-4.8); Lymphocytes % (A) 18 %; MCH 29.6 pg (25.0-35.0); MCHC 34.1 g/dL (31.0-37.0); MCV 86.8 fL (80.0-100.0); Mean Platelet Volume 7.3; Monocytes # (A) 0.5 k/uL (0-1.0); Monocytes % (A) 5 %; Neutrophils % (A) 75 %; Platelet Count 246 k/uL (150-450); RBC 4.71 m/uL (3.80-5.40); RDW 13.4 % (11.5-15.5); WBC 9.3 k/uL (3.8-10.6)
[2023-04-16 07:20] LABS: ALT 35 U/L (4-34); AST 30 U/L (14-36); African American GFR (CKD) >90 (>60 ml/min/1.73 sqM); Albumin 4.1 g/dL (3.5-5.0); Alkaline Phosphatase 97 U/L (38-126); Amylase 45 U/L (30-110); Anion Gap 7 mmol/L; Blood Urea Nitrogen 11 mg/dL (7-17); Calcium 8.7 mg/dL (8.4-10.2); Carbon Dioxide 24 mmol/L (22-30); Chloride 106 mmol/L (98-107); Glucose 102 mg/dL (74-99); Lipase 52 U/L (23-300); Non-African American GFR(CKD) >90 (>60 ml/min/1.73 sqM); Potassium 4.3 mmol/L (3.5-5.1); Sodium 137 mmol/L (137-145); Total Bilirubin 0.9 mg/dL (0.2-1.3); Total Protein 7.2 g/dL (6.3-8.2)
[2023-04-16 07:57] LABS: Appearance,Urine Clear (Clear); Bilirubin,Urine Negative (Negative); Blood,Urine Negative (Negative); Color,Urine Colorless; Glucose,Urine (UA) Negative (Negative); Ketones,Urine Negative (Negative); Leukocyte Esterase,Urine Negative (Negative); Nitrite,Urine Negative (Negative); PH, Urine 5.5 (5.0-8.0); Protein,Urine Negative (Negative); Specific Gravity,Urine 1.005 (1.001-1.035); Urobilinogen,Urine <2.0 mg/dL (<2.0)
[2023-04-16] MEDS ORDERED: HYDROmorphone 0.5 MG/0.5 ML SYRINGE IVP STA (08:02)
--- NOTE | 2023-04-16 08:44 | CT ---
EXAMINATION TYPE: CT abdomen pelvis w con DATE OF EXAM: 04/16/2023 COMPARISON: July 25, 2022 HISTORY: Abdominal pain radiating into back CT DLP: 1607.3 mGycm CONTRAST: CT scan of the abdomen and pelvis is performed without Oral Contrast and with IV Contrast, patient in jected with 300 mL of Isovue 300. FINDINGS: LUNG BASES-: No visible nodule. No infiltrate. LIVER/GB: The gallbladder is surgically absent. No space occupying hepatic lesion. Biliary tree is of normal caliber. PANCREAS: No inflammation. No distinct mass. SPLEEN: No splenic enlargement. No lesion seen. ADRENALS: No nodule. No thickening. KIDNEYS/BLADDER: No hydronephrosis. No nephrolithiasis. No distinct renal mass. Urinary bladder g rossly unremarkable. BOWEL: Normal appendix. Normal bowel caliber. No inflammation. GENITAL ORGANS: Tubal ligation changes. There is new septated cystic mass of the uterus which may be endometrial in location and measures 4.6 x 2.6 cm. Differential diagnostic possibilities include cyst ic adenomatoid tumor, cystic endometrial hyperplasia as well as endometriosis of the uterine body. Co rrelation with beta-hCG is recommended to exclude . Left ovarian cyst is noted measuring 1.6 cm. Right ovary is unremarkable. No evidence for free fluid. LYMPH NODES: No greater than 1cm abdominal or pelvic lymph nodes are appreciated. AORTA: No significant abnormality. OSSEOUS STRUCTURES: No significant abnormality is seen. OTHER: No significant additional abnormality is seen. IMPRESSION: 1. There is new septated cystic mass of the uterus which may be endometrial in location and measures 4.6 x 2.6 cm. Differential diagnostic possibilities include cystic adenomatoid tumor, cystic endometr ial hyperplasia as well as endometriosis of the uterine body. Correlation with beta-hCG is recommende d to exclude .
[2023-04-16 09:07] VITALS: BP 119/80; PULSE 60
[2023-04-16] MEDS ORDERED: ACET/COD 300 MG/30 MG STARTER PACK 6 TAB BTL PO STA (09:20)
== END 2023-04-16 09:46 | disposition home or self-care (01) ==
LOC: EC 06:20
DX: D26.9 Other benign neoplasm of uterus, unspecified (principal); I10 Essential (primary) hypertension; F41.9 Anxiety disorder, unspecified; F32.A Depression, unspecified; Z79.899 Other long term (current) drug therapy
CPT/HCPCS: 36415; 80053; 82150; 83605; 83690; 85025; 81003; 81025; 74177; 99284; 96374; 96375 ×2; 96361; J2405; J1885; J1170; Q9967

== ENCOUNTER 2023-04-17 04:35 | Emergency (ER) | payer OTHER ==
[2023-04-17 04:41] VITALS: RESP 18; TEMP 97.4
[2023-04-17] MEDS ORDERED: KETOROLAC 15 MG/ML 1 ML VIAL IVP STA (04:41)
--- NOTE | 2023-04-17 05:05 | ED ---
General Adult HPI - General Chief complaint: Abdominal Pain Stated complaint: abd pain Time Seen by Provider: 04/17/23 04:39 Source: patient Mode of arrival: EMS Limitations: no limitations - History of Present Illness Initial comments: This is a 42-year-old female with a past medical history including depression and anxiety presented to the emergency department via EMS for lower abdominal pain. The patient was seen in the emergency department yesterday and was diagnosed with a new likely endometrial tumor. The patient was sent home with pain medications however stated she was taking his medications as prescribed but stated the pain became more severe and sharp in nature in the suprapubic region. The patient stated that because this pain became significantly worse, she called EMS to be taken back to the emergency department for continued pain management and workup. The patient herself on arrival was given fentanyl and Zofran on arrival and stated that her pain was improving however had significant pain still occurring. The patient stated that the pain was more severe today than it had been yesterday. The patient initially stated that on Tuesday she felt as if she had low back pain but then the pain has gradually increased over the last several days. The patient denied any trauma and denied any nausea, vomiting as well as any diarrhea. The patient also denied any vaginal discharge or bleeding. - Related Data Home Medications Medication Instructions Recorded Confirmed Loratadine [Alavert] 10 mg PO DAILY 03/29/22 03/29/22 Losartan [Cozaar] 50 mg PO DAILY 03/29/22 03/29/22 Previous Rx's Medication Instructions Recorded HYDROcodone/APAP 5-325MG [[place] 1 tab PO Q6HR PRN 3 Days #12 tab 07/02/22 5-325] HYDROcodone/APAP 5-325MG [[place] 1 tab PO Q6HR PRN #12 tab 07/25/22 5-325] Ibuprofen [Motrin] 600 mg PO Q8HR PRN #24 tab 07/25/22 Allergies Allergy/AdvReac Type Severity Reaction Status Date / Time No Known Allergies Allergy Verified 04/17/23 04:41 Review of Systems ROS Statement: Those systems with pertinent positive or pertinent negative responses have been documented in the HPI. ROS Other: All systems not noted in ROS Statement are negative. Past Medical History Past Medical History: Hypertension, Musculoskeletal Disorder Additional Past Medical History / Comment(s): Scoliosis. History of Any Multi-Drug Resistant Organisms: None Reported Past Surgical History: Ablation, Cholecystectomy, Tubal Ligation Past Anesthesia/Blood Transfusion Reactions: Previous Problems w/ Anesthesia Additional Past Anesthesia/Blood Transfusion Reaction / Comment(s): Pt states difficulty waking up from general anesthesia. Past Psychological History: Anxiety, Depression Smoking Status: Never smoker Past Alcohol Use History: Occasional Past Drug Use History: None Reported - Past Family History Mother History Unknown: Yes Family Medical History: Hypertension General Exam Limitations: no limitations General appearance: alert, in distress (In mild distress 2/2 to abdominal pain) Head exam: Present: atraumatic, normocephalic, normal inspection Eye exam: Present: normal appearance, PERRL Pupils: Present: normal accommodation ENT exam: Present: normal exam, normal oropharynx, mucous membranes moist Neck exam: Present: normal inspection, full ROM Respiratory exam: Present: normal lung sounds bilaterally Cardiovascular Exam: Present: regular rate, normal rhythm, normal heart sounds GI/Abdominal exam: Present: soft, tenderness (Tenderness noted over the superior region), normal bowel sounds Extremities exam: Present: normal inspection, full ROM Back exam: Present: normal inspection, full ROM Neurological exam: Present: alert, oriented X3, CN II-XII intact Psychiatric exam: Present: normal affect, normal mood Skin exam: Present: warm, dry Course Vital Signs 04/17/23 04/17/23 04:37 05:41 Temperature 97.4 F L Pulse Rate 61 70 Respiratory 18 18 Rate Blood Pressure 145/95 126/86 O2 Sat by Pulse 97 97 Oximetry Medical Decision Making - Medical Decision Making Was pt. sent in by a medical professional or institution (, PA, ELECTRICIAN MARINE, urgent care, hospital, or longterm...) When possible be specific @ -No Did you speak to anyone other than the patient for history (EMS, parent, family, police, friend...)? What history was obtained from this source @ -No Did you review nursing and triage notes (agree or disagree)? Why? @ -I reviewed and agree with nursing and triage notes Were old charts reviewed (outside hosp., previous admission, EMS record, old EKG, old radiological studies, urgent care reports/EKG's, longterm records)? Report findings @ -Yes, previous ER visit for the patient yesterday including computed tomography scan was reviewed Differential Diagnosis (chest pain, altered mental status, abdominal pain women, abdominal pain men, vaginal bleeding, weakness, fever, dyspnea, syncope, headache, dizziness, GI bleed, back pain, seizure, CVA, palpatations, mental health)? @ -Intractable abdominal pain, worsening pelvic mass, small bowel obstruction EKG interpreted by me (3pts min.). @ -None X-rays interpreted by me (1pt min.). @ -None done CT interpreted by me (1pt min.). @ -None done U/S interpreted by me (1pt. min.). @ -None done What testing was considered but not performed or refused? (CT, X-rays, U/S, labs)? Why? @ -.. Computed tomography scan was considered however the patient had a computed tomography scan done yesterday therefore no further imaging was needed at this time. What meds were considered but not given or refused? Why? @ -None Did you discuss the management of the patient with other professionals (professionals i.e. DrShakeel, PA, ELECTRICIAN MARINE, lab, RT, psych nurse, social work coordinator, web site specialist, t eacher, deportation officer, outsole caser)? Give summary @ -Yes, [facility] transfer line, OBGYN at [facility], Dr. Vasquez who recommended the patient be evaluated and transferred to [facility]. [facility] Television Production Technician Onc, Dr. Ball was told of the patient did accept the patient for a direct transfer admission. Was smoking cessation discussed for >3mins.? @ -No Was critical care preformed (if so, how long)? @ -No Were there social determinants of health that impacted care today? How? (Homelessness, low income, unemployed, alcoholism, drug addiction, transportat ion, low edu. Level, literacy, decrease access to med. care, skilled nursing, rehab)? @ -No Was there de-escalation of care discussed even if they declined (Discuss DNR or withdrawal of care, Hospice)? DNR status @ -No What co-morbidities impacted this encounter? (DM, HTN, Smoking, COPD, CAD, Cancer, CVA, ARF, Chemo, Hep., AIDS, mental health diagnosis, sleep apnea, morbid obesity)? @ -None Was patient admitted / discharged? Hospital course, mention meds given and route, prescriptions, significant lab abnormalities, going to OR and other pertinent info. @ -The patient was seen and evaluated emergency department. Physical exam, the patient was resting in bed in moderate distress secondary to lower abdominal pain. Due to the patient's revisits the emergency department less than 24 hours for the same pain in the setting of recent undiagnosed pelvic mass likely endom etrial in nature, the patient would require admission for further evaluation at this time. The patient received multiple doses of pain medications in the emergency department. The patient was being seen by Tanvir Umanzor Dr. for SLAB MILLER OPERATOR and as the patient did need a gynecology oncology consult, the patient will require transfer for this higher level of care. Tanvir Umanzor was contacted regarding transfer and ultimately accepted the patient for a direct inpatient transfer admission under Dr. Ball to the gynecology oncology floor. The patient was told of this plan and was extremely appreciated and was transferred in stable condition once a bed assignment has been given. Undiagnosed new problem with uncertain prognosis? @ -No Drug Therapy requiring intensive monitoring for toxicity (Heparin, Nitro, Insulin, Cardizem)? @ -No Were any procedures done? @ -No Diagnosis/symptom? @ -Intractable pain secondary to endometrial mass Acute, or Chronic, or Acute on Chronic? @ -Acute Uncomplicated (without systemic symptoms) or Complicated (systemic symptoms)? @ -Complicated Side effects of treatment? @ -No Exacerbation, Progression, or Severe Exacerbation? @ -No Poses a threat to life or bodily function? How? (Chest pain, USA, [place], pneumonia, PE, COPD, DKA, ARF, appy, cholecystitis, CVA, Diverticulitis, Homicidal, Suicidal, threat to staff... and all critical care pts) @ -No - Lab Data Result diagrams: 04/17/23 04:54 04/17/23 04:54 Lab Results 04/17/23 04/17/23 04/17/23 Range/Units 04:54 04:54 06:13 WBC 8.5 (3.8-10.6) k/uL RBC 4.59 (3.80-5.40) m/uL Hgb 13.8 (11.4-16.0) gm/dL Hct 40.1 (34.0-46.0) % MCV 87.4 (80.0-100.0) fL MCH 30.0 (25.0-35.0) pg MCHC 34.4 (31.0-37.0) g/dL RDW 13.6 (11.5-15.5) % Plt Count 195 (150-450) k/uL MPV 7.5 Neutrophils % 71 % Lymphocytes % 21 % Monocytes % 5 % Eosinophils % 1 % Basophils % 0 % Neutrophils # 6.1 (1.3-7.7) k/uL Lymphocytes # 1.8 (1.0-4.8) k/uL Monocytes # 0.4 (0-1.0) k/uL Eosinophils # 0.1 (0-0.7) k/uL Basophils # 0.0 (0-0.2) k/uL Sodium 137 (137-145) mmol/L Potassium 4.0 (3.5-5.1) mmol/L Chloride 109 H (98-107) mmol/L Carbon Dioxide 20 L (22-30) mmol/L Anion Gap 8 mmol/L BUN 12 (7-17) mg/dL Creatinine 0.50 L (0.52-1.04) mg/dL Est GFR (CKD-EPI)AfAm >90 (>60 ml/min/1.73 sqM) Est GFR (CKD-EPI)NonAf >90 (>60 ml/min/1.73 sqM) Glucose 103 H (74-99) mg/dL Calcium 8.2 L (8.4-10.2) mg/dL Magnesium 1.8 (1.6-2.3) mg/dL Total Bilirubin 0.8 (0.2-1.3) mg/dL AST 53 H (14-36) U/L ALT 48 H (4-34) U/L Alkaline Phosphatase 98 (38-126) U/L Total Protein 6.7 (6.3-8.2) g/dL Albumin 3.8 (3.5-5.0) g/dL Lipase 55 (23-300) U/L Urine Color Yellow Urine Appearance Clear (Clear) Urine pH 5.0 (5.0-8.0) Ur Specific [place] 1.024 (1.001-1.035) Urine Protein Trace H (Negative) Urine Glucose (UA) Negative (Negative) Urine Ketones Negative (Negative) Urine Blood Trace H (Negative) Urine Nitrite Negative (Negative) Urine Bilirubin Negative (Negative) Urine Urobilinogen <2.0 (<2.0) mg/dL Ur Leukocyte Esterase Moderate H (Negative) Urine RBC 3 (0-5) /hpf Urine WBC 10 H (0-5) /hpf Ur Squamous Epith Cells 1 (0-4) /hpf Urine Bacteria Rare H (None) /hpf Urine Mucus Occasional H (None) /hpf Disposition Clinical Impression: Endometrial mass, Intractable abdominal pain Disposition: OTHER INSTITUTION NOT DEFINED Condition: Stable Is patient prescribed a controlled substance at d/c from ED?: No Referrals: Tabitha Lopez MD [Primary Care Provider] - 1-2 days Time of Disposition: 06:15 - Out of Hospital Transfer - Req. Specs Out of Hospital Transfer - Requested Specifics: Other Non-Acute ([facility], Inpatient, GynOnc)
[2023-04-17 05:06] LABS: Basophils % (A) 0 %; Eosinophils # (A) 0.1 k/uL (0-0.7); Eosinophils % (A) 1 %; HCT 40.1 % (34.0-46.0); HGB 13.8 gm/dL (11.4-16.0); Lymphocytes # (A) 1.8 k/uL (1.0-4.8); Lymphocytes % (A) 21 %; MCHC 34.4 g/dL (31.0-37.0); MCV 87.4 fL (80.0-100.0); Mean Platelet Volume 7.5; Monocytes # (A) 0.4 k/uL (0-1.0); Monocytes % (A) 5 %; Neutrophils # (A) 6.1 k/uL (1.3-7.7); Neutrophils % (A) 71 %; Platelet Count 195 k/uL (150-450); RBC 4.59 m/uL (3.80-5.40); RDW 13.6 % (11.5-15.5); WBC 8.5 k/uL (3.8-10.6)
[2023-04-17 05:17] LABS: ALT 48 U/L (4-34); AST 53 U/L (14-36); African American GFR (CKD) >90 (>60 ml/min/1.73 sqM); Albumin 3.8 g/dL (3.5-5.0); Alkaline Phosphatase 98 U/L (38-126); Anion Gap 8 mmol/L; Blood Urea Nitrogen 12 mg/dL (7-17); Calcium 8.2 mg/dL (8.4-10.2); Carbon Dioxide 20 mmol/L (22-30); Chloride 109 mmol/L (98-107); Glucose 103 mg/dL (74-99); Lipase 55 U/L (23-300); Magnesium 1.8 mg/dL (1.6-2.3); Non-African American GFR(CKD) >90 (>60 ml/min/1.73 sqM); Sodium 137 mmol/L (137-145); Total Bilirubin 0.8 mg/dL (0.2-1.3); Total Protein 6.7 g/dL (6.3-8.2)
[2023-04-17] MEDS ORDERED: MORPHINE SULFATE 4 MG/ML SYRINGE IVP STA (06:02)
[2023-04-17 06:32] LABS: Appearance,Urine Clear (Clear); Bacteria,Urine Rare /hpf; Bilirubin,Urine Negative (Negative); Blood,Urine Trace (Negative); Color,Urine Yellow; Glucose,Urine (UA) Negative (Negative); Ketones,Urine Negative (Negative); Leukocyte Esterase,Urine Moderate (Negative); Mucus,Urine Occasional /hpf; Nitrite,Urine Negative (Negative); Protein,Urine Trace (Negative); RBC,Urine 3 /hpf (0-5); Specific Gravity,Urine 1.024 (1.001-1.035); Squamous Epithelial Cell,Urine 1 /hpf (0-4); Urobilinogen,Urine <2.0 mg/dL (<2.0); WBC,Urine 10 /hpf (0-5)
[2023-04-17 09:28] VITALS: BP 123/79; PULSE 73
== END 2023-04-17 09:29 | disposition other institution (70) ==
LOC: EC 04:35
DX: N85.8 Other specified noninflammatory disorders of uterus (principal); I10 Essential (primary) hypertension; F41.9 Anxiety disorder, unspecified; F32.A Depression, unspecified; Z79.899 Other long term (current) drug therapy
CPT/HCPCS: 36415; 80053; 83690; 83735; 85025; 81001; 87635; 99285; 96374; 96375; J2270; J1885